=== PATIENT | female | born 1960 | race Two or more races ===

== ENCOUNTER 2024-10-08 12:31 | Inpatient (IN) | payer MEDICAID, OTHER ==
[~2024-10-08] VITALS: Ht 157.5 cm; Wt 48.0 kg
--- NOTE | 2024-10-08 12:44 | ED.PDOC ---
History of Present Illness HPI Comments 64Y F presents to ED via EMS for chief complaint body aches. Additional symptoms include headache, ear pain, teeth pain, neck pain, back pain, congestion, productive cough, and fever. Pt denies chest pain and SOB. Pt states she hurts everywhere. Pt has sick family at home. Chief Complaint: Body Pain Time Seen by MD: 12:37 Reviewed Notes: Medications, Allergies Allergies: Coded Allergies: Penicillins (Verified Allergy, Unknown, 10/08/24) Information Source: Patient, Emergency Med Personnel Mode of Arrival: EMS Severity: Mild Timing: Days Duration: Since onset Prehospital treatment: None Past Medical History PAST MEDICAL HISTORY: Denies Surgical History: Denies all surgeries DRUM LOADER AND UNLOADER History: No Pertinent DRUM LOADER AND UNLOADER History Family History Family History: Unknown Social History Smoker: Cigarettes, Less Than 1 Pack/Day Alcohol: Rarely Drugs: Denies Drug Use Lives In: Home Constitutional: reports: fever, others (body aches); denies: chills, diaphoresis, fatigue, malaise, sweats, weakness EENTM: reports: ear pain, mouth pain, nose congestion; denies: blurred vision, double vision, ear bleeding, ear discharge, ear drainage, ear ringing, eye pain, eye redness, hearing loss, mouth swelling, nasal discharge, nose bleeding, nose pain, photophobia, tearing, throat pain, throat swelling, voice changes, others Respiratory: reports: cough; denies: hemoptysis, orthopnea, SOB at rest, shortness of breath, SOB with excertion, stridor, wheezing, others Cardiovascular: denies: chest pain, dizzy spells, diaphoresis, Dyspnea on exertion, edema, irregular heart beat, left arm pain, lightheadedness, palpitations, PND, syncope, others Gastrointestinal: denies: abdomen distended, abdominal pain, blood streaked bowels, constipated, diarrhea, dysphagia, difficulty swallowing, hematemesis, melena, nausea, poor appetite, poor fluid intake, rectal bleeding, rectal pain, vomiting, others Genitourinary: denies: abnormal vagina bleeding, burning, dyspareunia, dysuria, flank pain, frequency, hematuria, incontinence, pain, , vagina discharge, urgency, others Neurological: reports: headache; denies: dizziness, fainting, left sided numbness, left sided weakness, numbness, paresthesia, pre-existing deficit, right sided numbness, right sided weakness, seizure, speech problems, tingling, tremors, weakness, others Musculoskeletal: reports: back pain, joint pain, neck pain; denies: gout, joint swelling, muscle pain, muscle stiffness, others Integumetry: denies: bruises, change in color, change in hair/nails, dryness, laceration, lesions, lumps, rash, wounds, others Allergic/Immunocompromised: denies: Difficulty Healing, Frequent Infections, Hives, Itching, others Hematologic/Lymphatic: denies: anemia, blood clots, easy bleeding, easy bruisi ng, swollen glands, others Endocrine: denies: excessive hunger, excessive sweating, excessive thirst, exce ssive urination, flushing, intolerance to cold, intolerance to heat, unexplained weight gain, unexplained weight loss, others Psychiatric: denies: anxiety, bipolar disorder, depression, hopeless, panic disorder, schizophrenia, sleepless, suicidal, others All Other Systems: Reviewed and Negative Physical Exam General Appearance: Other (tenderness on touch) HEENT: Normal ENT Inspection, Pharynx Normal, TMs Normal Neck: Full Range of Motion, Non-Tender, Normal, Normal Inspection Respiratory: Chest Non-Tender, Lungs Clear, No Accessory Muscle Use, No Respiratory Distress, Normal Breath Sounds Cardiovascular: No Edema, No JVD, No Murmur, No Gallop, Normal Peripheral Pulses, Regular Rate/Rhythm Breast Exam: Deferred Gastrointestinal: No Organomegaly, Non Tender, No Pulsatile Mass, Normal Bowel Sounds, Soft Genitalia: Deferred Pelvic: Deferred Rectal: Deferred Extremities: No calf tenderness, Normal capillary refill, Normal inspection, Normal range of motion, Non-tender, No pedal edema Musculoskeletal : Apperance: Normal Neurologic: Alert, manager filter II-XII nml as Tested, No Motor Deficits, Normal Affect, Normal Mood, No Sensory Deficits Cerebellar Function: Normal Reflexes: Normal Skin: Dry, Normal Color, Warm Lymphatic: No Adenopathy Was a procedure done? Was a procedure done?: No Differential Dx Considerations may include: URI, COVID, Influenza X-Ray, Labs, Meds, VS Vital Signs Date Time Temp Pulse Resp B/P (MAP) Pulse Ox O2 Delivery O2 Flow Rate FiO2 10/08/24 13:06 102.1 12/25/24 12:55 102.1 94 18 150/83 (105) 94 102.1 10/08/24 12:55 94 18 94 Room Air 10/08/24 12:37 100.8 99 18 132/75 (94) 96 Lab Test 10/08/24 13:36 Range/Units White Blood Count 14.4 H 4.4-10.8 10^3/uL Red Blood Count 4.24 4.0-5.20 10^6/uL Hemoglobin 12.5 12.2-16.2 g/dL Hematocrit 37.0 36.0-46.0 % Mean Corpuscular Volume 87.3 80.0-100.0 fL Mean Corpuscular Hemoglobin 29.4 28.0-32.0 pg Mean Corpuscular Hemoglobin Concent 33.7 32.0-36.0 g/dL Red Cell Distribution Width 14.3 11.8-14.3 % Platelet Count 349 140-450 10^3/uL Mean Platelet Volume 8.6 6.9-10.8 fL Neutrophils (%) (Auto) 81.3 H 37.0-80.0 % Lymphocytes (%) (Auto) 10.9 10.0-50.0 % Monocytes (%) (Auto) 7.2 0.0-12.0 % Eosinophils (%) (Auto) 0.2 0.0-7.0 % Basophils (%) (Auto) 0.4 0.0-2.0 % Neutrophils # (Auto) 11.7 H 1.6-8.6 10 ^3/uL Lymphocytes # (Auto) 1.6 0.4-5.4 10 ^3/uL Monocytes # (Auto) 1.0 0-1.3 10 ^3/uL Eosinophils # (Auto) 0 0-0.8 10 ^3/uL Basophils # (Auto) 0.1 0-0.2 10 ^3/uL Nucleated Red Blood Cells 0.0 % Sodium Level 135 L 136-145 mmol/L Potassium Level 3.3 L 3.5-5.1 mmol/L Chloride Level 104 98-107 mmol/L Carbon Dioxide Level 21 20-31 mmol/L Anion Gap 10 5-15 Blood Urea Nitrogen 16 9-23 mg/dL Creatinine 0.69 0.550-1.02 mg/dL Glomerular Filtration Rate Calc 98 >90 mL/min BUN/Creatinine Ratio 23.2 H 10.0-20.0 Serum Glucose 104 74-106 mg/dL Calcium Level 10.1 8.7-10.4 mg/dL Creatine Kinase 61 34-145 U/L Current Medications Medications (Trade) Dose Ordered Sig/Corrie Route Start Time Stop Time Status Last Admin Ketorolac Tromethamine (Toradol Injection) 30 mg ONCE ONCE IM 10/08/24 12:45 10/08/24 12:46 DC 10/08/24 13:06 Acetaminophen (Tylenol Tablet Or Capsule) 1,000 mg ONCE ONCE PO 10/08/24 13:00 10/08/24 13:01 DC 10/08/24 13:06 Time of 1ST Reevaluation: 13:07 Reevaluation 1ST: Unchanged Patient Education/Counseling: Diagnosis, Treatment Family Education/Counseling: No Family Present Critical Care Note Critical Care Time?: No Stability Stability form required: No Heart Score Heart Score: Heart Score Response (Comments) Value History N/A 0 EKG N/A 0 Age N/A 0 Risk Factors N/A 0 Troponin N/A 0 Total 0 I personally scribed for JAMES HOFFMAN MD ([email or web address]) on 10/08/24 at 12:44. Electronically submitted by Karina Beaver ([employer]). I personally scribed for JAMES HOFFMAN MD ([email or web address]) on 10/08/24 at 14:26. Electronically submitted by Karina Beaver ([employer]). JAMES HOFFMAN MD Oct 08, 2024 12:44
[2024-10-08] MEDS: ACETAMINOPHEN 500 MG TAB or CAP PO ONE (13:06)
[2024-10-08] MEDS: KETOROLAC TROMETH 30 MG/ML 1ML VIAL IM ONE (13:06)
--- NOTE | 2024-10-08 13:39 | DVH ---
CHEST RADIOGRAPH Indication: pain Technique: Single frontal view of the chest was obtained Comparison: None FINDINGS: Lines and Tubes: None Lungs: Bilateral lower lung zone opacification. Pleura: No effusion. No pneumothorax. Cardiomediastinal contours: Unremarkable Bones: No acute osseous abnormality. IMPRESSION: Bilateral lower lung zone pneumonia/atelectasis.
[2024-10-08 13:52] LABS: Basophils # (auto) 0.1 10 ^3/uL (0-0.2); Basophils % (auto) 0.4 % (0.0-2.0); Eosinophils # (auto) 0 10 ^3/uL (0-0.8); Eosinophils % (auto) 0.2 % (0.0-7.0); Hemoglobin 12.5 g/dL (12.2-16.2); Lymphocytes # (auto) 1.6 10 ^3/uL (0.4-5.4); Lymphocytes % (auto) 10.9 % (10.0-50.0); Mean Corpuscular Hemoglobin 29.4 pg (28.0-32.0); Mean Corpuscular Hgb Conc. 33.7 g/dL (32.0-36.0); Mean Corpuscular Volume 87.3 fL (80.0-100.0); Monocytes % (auto) 7.2 % (0.0-12.0); Neutrophils # (auto) 11.7 10 ^3/uL (1.6-8.6); Neutrophils % (auto) 81.3 % (37.0-80.0); Platelet Count (auto) 349 10^3/uL (140-450); Red Blood Cells 4.24 10^6/uL (4.0-5.20); Red Cell Distribution Width 14.3 % (11.8-14.3); White Blood Cell 14.4 10^3/uL (4.4-10.8)
[2024-10-08 13:57] LABS: Chloride 104 mmol/L (98-107)
[2024-10-08 13:58] LABS: Anion Gap 10 (5-15); Calcium 10.1 mg/dL (8.7-10.4); Carbon Dioxide 21 mmol/L (20-31)
[2024-10-08 14:03] LABS: BUN/Creatinine Ratio 23.2 (10.0-20.0); Blood Urea Nitrogen 16 mg/dL (9-23); Glucose 104 mg/dL (74-106)
[2024-10-08 14:05] LABS: Creatine Kinase IFCC 61 U/L (34-145)
[2024-10-08 14:09] LABS: Potassium 3.3 mmol/L (3.5-5.1); Sodium 135 mmol/L (136-145)
--- NOTE | 2024-10-08 14:29 | ED.PDOC ---
History of Present Illness HPI Comments 64Y F presents to ED via EMS for chief complaint body aches. Additional symptoms include headache, ear pain, teeth pain, neck pain, back pain, congestion, productive cough, and fever. Pt denies chest pain and SOB. Pt states she hurts everywhere. Pt has sick family at home. Chief Complaint: Body Pain Time Seen by MD: 12:37 Primary Care Provider: aviva Horne Notes: Medications, Allergies Allergies: Coded Allergies: Penicillins (Verified Allergy, Unknown, 10/08/24) Information Source: Patient, Emergency Med Personnel Mode of Arrival: EMS Severity: Mild Timing: Days Duration: Since onset Prehospital treatment: None Past Medical History PAST MEDICAL HISTORY: Denies Surgical History: Denies all surgeries FAIRGROUND OPERATOR History: No Pertinent FAIRGROUND OPERATOR History Family History Family History: Unknown Social History Smoker: Cigarettes, Less Than 1 Pack/Day Alcohol: Rarely Drugs: Denies Drug Use Lives In: Home Constitutional: reports: fever; denies: chills, diaphoresis, fatigue, malaise, sweats, weakness, others EENTM: reports: ear pain, mouth pain, nose congestion; denies: blurred vision, double vision, ear bleeding, ear discharge, ear drainage, ear ringing, eye pain, eye redness, hearing loss, mouth swelling, nasal discharge, nose bleeding, nose pain, photophobia, tearing, throat pain, throat swelling, voice changes, others Respiratory: reports: cough; denies: hemoptysis, orthopnea, SOB at rest, shortness of breath, SOB with excertion, stridor, wheezing, others Cardiovascular: denies: chest pain, dizzy spells, diaphoresis, Dyspnea on exertion, edema, irregular heart beat, left arm pain, lightheadedness, palpitations, PND, syncope, others Gastrointestinal: denies: abdomen distended, abdominal pain, blood streaked bowels, constipated, diarrhea, dysphagia, difficulty swallowing, hematemesis, melena, nausea, poor appetite, poor fluid intake, rectal bleeding, rectal pain, vomiting, others Genitourinary: denies: abnormal vagina bleeding, burning, dyspareunia, dysuria, flank pain, frequency, hematuria, incontinence, pain, , vagina discharge, urgency, others Neurological: reports: headache; denies: dizziness, fainting, left sided numbness, left sided weakness, numbness, paresthesia, pre-existing deficit, right sided numbness, right sided weakness, seizure, speech problems, tingling, tremors, weakness, others Musculoskeletal: reports: back pain, joint pain, muscle pain, neck pain; d enies: gout, joint swelling, muscle stiffness, others Integumetry: denies: bruises, change in color, change in hair/nails, dryness, laceration, lesions, lumps, rash, wounds, others Allergic/Immunocompromised: denies: Difficulty Healing, Frequent Infections, Hives, Itching, others Hematologic/Lymphatic: denies: anemia, blood clots, easy bleeding, easy bruising, swollen glands, others Endocrine: denies: excessive hunger, excessive sweating, excessive thirst, excessive urination, flushing, intolerance to cold, intolerance to heat, unexplained weight gain, unexplained weight loss, others Psychiatric: denies: anxiety, bipolar disorder, depression, hopeless, panic disorder, schizophrenia, sleepless, suicidal, others All Other Systems: Reviewed and Negative Physical Exam General Appearance: No Apparent Distress, Normal HEENT: Normal ENT Inspection, Pharynx Normal, TMs Normal Neck: Full Range of Motion, Non-Tender, Normal, Normal Inspection Respiratory: Chest Non-Tender, Lungs Clear, No Accessory Muscle Use, No Respiratory Distress, Normal Breath Sounds Cardiovascular: No Edema, No JVD, No Murmur, No Gallop, Normal Peripheral Pulses, Regular Rate/Rhythm Breast Exam: Deferred Gastrointestinal: No Organomegaly, Non Tender, No Pulsatile Mass, Normal Bowel Sounds, Soft Genitalia: Deferred Pelvic: Deferred Rectal: Deferred Extremities: No calf tenderness, Normal capillary refill, Normal inspection, Normal range of motion, Non-tender, No pedal edema Musculoskeletal : Apperance: Normal Neurologic: Alert, manager summer II-XII nml as Tested, No Motor Deficits, Normal Affect, Normal Mood, No Sensory Deficits Cerebellar Function: Normal Reflexes: Normal Skin: Dry, Normal Color, Warm Lymphatic: No Adenopathy Was a procedure done? Was a procedure done?: No Differential Dx Considerations may include: influenza, COVID, URI, rhabdomyolysis, pneumonia, chronic pain X-Ray, Labs, Meds, VS Vital Signs Date Time Temp Pulse Resp B/P (MAP) Pulse Ox O2 Delivery O2 Flow Rate FiO2 10/08/24 13:06 102.1 10/08/24 12:55 102.1 94 18 150/83 (105) 94 102.1 10/08/24 12:55 94 18 94 Room Air 10/08/24 12:37 100.8 99 18 132/75 (94) 96 Lab Test 10/08/24 13:36 10/08/24 12:56 Range/Units White Blood Count 14.4 H 4.4-10.8 10^3/uL Red Blood Count 4.24 4.0-5.20 10^6/uL Hemoglobin 12.5 12.2-16.2 g/dL Hematocrit 37.0 36.0-46.0 % Mean Corpuscular Volume 87.3 80.0-100.0 fL Mean Corpuscular Hemoglobin 29.4 28.0-32.0 pg Mean Corpuscular Hemoglobin Concent 33.7 32.0-36.0 g/dL Red Cell Distribution Width 14.3 11.8-14.3 % Platelet Count 349 140-450 10^3/uL Mean Platelet Volume 8.6 6.9-10.8 fL Neutrophils (%) (Auto) 81.3 H 37.0-80.0 % Lymphocytes (%) (Auto) 10.9 10.0-50.0 % Monocytes (%) (Auto) 7.2 0.0-12.0 % Eosinophils (%) (Auto) 0.2 0.0-7.0 % Basophils (%) (Auto) 0.4 0.0-2.0 % Neutrophils # (Auto) 11.7 H 1.6-8.6 10 ^3/uL Lymphocytes # (Auto) 1.6 0.4-5.4 10 ^3/uL Monocytes # (Auto) 1.0 0-1.3 10 ^3/uL Eosinophils # (Auto) 0 0-0.8 10 ^3/uL Basophils # (Auto) 0.1 0-0.2 10 ^3/uL Nucleated Red Blood Cells 0.0 % Sodium Level 135 L 136-145 mmol/L Potassium Level 3.3 L 3.5-5.1 mmol/L Chloride Level 104 98-107 mmol/L Carbon Dioxide Level 21 20-31 mmol/L Anion Gap 10 5-15 Blood Urea Nitrogen 16 9-23 mg/dL Creatinine 0.69 0.550-1.02 mg/dL Glomerular Filtration Rate Calc 98 >90 mL/min BUN/Creatinine Ratio 23.2 H 10.0-20.0 Serum Glucose 104 74-106 mg/dL Calcium Level 10.1 8.7-10.4 mg/dL Creatine Kinase 61 34-145 U/L Influenza Type A Antigen Pending Influenza Type B Antigen Pending SARS-CoV-2 Antigen (Rapid) Pending Current Medications Medications (Trade) Dose Ordered Sig/Corrie Route Start Time Stop Time Status Last Admin Ketorolac Tromethamine (Toradol Injection) 30 mg ONCE ONCE IM 10/08/24 12:45 10/08/24 12:46 DC 10/08/24 13:06 Acetaminophen (Tylenol Tablet Or Capsule) 1,000 mg ONCE ONCE PO 10/08/24 13:00 10/08/24 13:01 DC 10/08/24 13:06 [place] [id number] Ph: [phone] DIAGNOSTIC IMAGING Diagnostic Imaging Report : [id number] Signed PATIENT: PILAR NELSON ACCT: [id number] UNIT: [id number] : 1960 LOC: ER ROOM / BED: / AGE / SEX: 64 / F ADM STATUS: REG ER SERVICE 1241 ORDERING PHYSICIAN: WALT DIMAS MD PROCEDURE(s): CXRP - CHEST PORTABLE REASON: pain ORDER NUMBER(s): [id number], ACCESSION NUMBER(s): [id number] CHEST RADIOGRAPH Indication: pain Technique: Single frontal view of the chest was obtained Comparison: None FINDINGS: Lines and Tubes: None Lungs: Bilateral lower lung zone opacification. Pleura: No effusion. No pneumothorax. Cardiomediastinal contours: Unremarkable Bones: No acute osseous abnormality. IMPRESSION: Bilateral lower lung zone pneumonia/atelectasis. ATED BY: SIMRAN MCFADDEN DO DICTATED DATE/TIME: 10/08/241335 SIGNED BY: SIMRAN MCFADDEN DO SIGNED DATE/TIME: 10/08/24 133 CC: Time of 1ST Reevaluation: 13:07 Reevaluation 1ST: Unchanged Time of 2ND Reevaluation: 14:50 Reevaluation 2ND: Unchanged Time of 3RD Reevaluation: 15:15 Reevaluation 3RD: Unchanged Patient Education/Counseling: Diagnosis, Treatment, Prognosis, Need For Follow Up Family Education/Counseling: No Family Present Additional Information pt h as evidence of pneumonia, which may have contributed to her overall pain. she does not have rhabdomyolysis. she has a fever and leukocytosis and a source of infection, so i will start the sepsis order set and admit her for further treatments Sepsis Sepsis Reasesment Focused Exam Sepsis focused exam: focus exam completed, time: (pt remains stable is feeling [id number]) Departure 1 Departure Time of Disposition: 13:07 Impression: Primary Impression: Pneumonia Qualified Codes: J18.9 - Pneumonia, unspecified organism Additional Impressions: Myalgia Sepsis Qualified Codes: A41.9 - Sepsis, unspecified organism Disposition: ADMITTED INPATIENT Admit to: Med Surg Condition: Serious Critical Care Note Critical Care Time?: Yes (55 min-critical care time only) Critical care comment: due to concerns for patient's condition deteriorating, the care required my highest level of attention and readiness to intervene. i reviewed any external notes, communicatd with medical personnel, assessed the pt, ordered the proper tests and treatments, and reassessed for response, formulated a plan of care. the critical care time excludes any procedures Stability Stability form required: No Heart Score Heart Score: Heart Score Response (Comments) Value History N/A 0 EKG N/A 0 Age N/A 0 Risk Factors N/A 0 Troponin N/A 0 Total 0 I personally scribed for WALT DIMAS MD ([email or web address]) on 10/08/24 at 14:29. Electronically submitted by Karina Beaver ([employer]). I personally scribed for WALT DIMAS MD ([email or web address]) on 10/08/24 at 14:30. Electronically submitted by Karina Beaver ([employer]). WALT DIMAS MD Oct 08, 2024 14:29
[2024-10-08 15:29] LABS: COVID19 ANTIGEN SOFIA FIA NEGATIVE (NEGATIVE)
[2024-10-08 15:30] LABS: Rapid Influenza A Negative (Negative); Rapid Influenza B Negative (Negative)
[2024-10-08] MEDS: SODIUM CHLORIDE 0.9% 1,500 ML IV ONE (15:36)
[2024-10-08] MEDS: levoFLOXacin 750MG 150 ML IV SCH (15:59)
[2024-10-08 16:08] VITALS: RESP 18; O2SAT 94
[2024-10-08 18:31] VITALS: PULSE 79; RESP 17; O2SAT 95
[2024-10-08 19:21] VITALS: PULSE 74; RESP 27; O2SAT 90
--- NOTE | 2024-10-08 21:14 | DVHHPRES ---
History of Present Illness Resident Creating Document: MARISOL MATHEW RESIDENT History of Present Illness This is a 64-year-old female with no significant past medical history presented to the ED with a chief complaint of malaise, generalized severe body ache, cold ,cough and low-grade fever for last 4 days prior to this admission. The patient states that she started having body ache, malaise and cough and cold toward last 4 days and also mentioned positive sick contact and 1 episodes of high fever but she did not measure the temperature. The patient denies chest pain, dizzin ess, diaphoresis, abdominal pain, nausea, vomiting, dysuria, hematuria or any change in bowel habit. Past Medical History None Past Surgical History Partial hysterectomy, thyroglossal cyst surgery Family History None Past Social History Lives with boyfriend Occasional smoker, occasional drinker and marijuana abuse disorder Review of Systems Constitutional: Yes: Fever, Chills, Weakness, Malaise; No: Sweats, Other Eyes: No: Pain, Vision change, Conjunctivae inflammation, Eyelid inflammation, Other, Redness ENT: No: Ear pain, Ear discharge, Nose pain, Nose discharge, Nose congestion, Mouth pain, Mouth swelling, Throat pain, Throat swelling, Other Respiratory: Cough, Shortness of breath, Sputum; No: Dry, SOB with excertion, Wheezing, Hemoptysis, Pleuritic Pain, Wheezing, Other Cardiovascular: No: Chest Pain, Palpitations, Orthopnea, Paroxysmal Noc. Dyspnea, Edema, Lt Headedness, Other Gastrointestinal: No: Nausea, Vomiting, Abdominal Pain, Diarrhea, Constipation, Melena, Hematochezia, Other Genitourinary: No Dysuria, No Frequency, No Incontinence, No Hematuria, No Retention, No Other Musculoskeletal: neck pain, shoulder pain, arm pain, back pain, hand pain, leg pain, foot pain; No: other Skin: No: Rash, Lesions, Jaundice, Bruising, Other Neurological: No: Weakness, Numbness, Incoordination, Change in speech, Confusion, Seizures, Other Allergies: Coded Allergies: Penicillins (Verified Allergy, Unknown, 10/08/24) Medications Current Medications Medications Dose Ordered Sig/Corrie Route Start Time Stop Time Status Last Admin Dose Admin Levofloxacin/ Dextrose 150 ml @ 50 mls/hr DAILY IV 10/08/24 21:15 UNV Albuterol 2.5 mg Q6HPRN NEB 10/09/24 00:00 UNV Ipratropium [employer] 0.5 mg Q6HPRN [facility] 10/09/24 00:00 UNV Exam Vital Signs Vital Signs Date Time Temp Pulse Resp B/P (MAP) Pulse Ox O2 Delivery O2 Flow Rate FiO2 10/08/24 19:21 74 27 90 Room Air* 0 21 10/08/24 19:20 98.6 117/69 (85) 98.6 Exam Physical examination: General Appearance: Alert, Oriented X3, Cooperative, mild distress and with 3 L nasal cannula o2 HEENT: Atraumatic, PERRLA, EOMI, Mucous membrane moist/pink Respiratory: Bilateral crackles . Cardiovascular: Regular rate, Normal S1, Normal S2, No murmurs, no chest wall tenderness Abdominal: Normal bowel sounds, Soft, No tenderness, No hepatospenomegaly, No masses Extremities: No clubbing, No cyanosis, No edema, Normal pulses, No tendernes s/swelling Skin: No rashes, No breakdown, No significant lesion Neuro: Normal gait, Normal speech, Strength at 5/5 X4 ext, Normal tone, Sensation intact, grossly intact cranial nerves Psych/Mental Status: Mental status NL, Mood NL Labs/Xrays Labs Test 10/08/24 20:40 10/08/24 15:20 10/08/24 13:36 10/08/24 12:56 Range/Units Lactic Acid Level 1.0 0.4-2.0 mmol/L White Blood Count 14.4 H 4.4-10.8 10^3/uL Red Blood Count 4.24 4.0-5.20 10^6/uL Hemoglobin 12.5 12.2-16.2 g/dL Hematocrit 37.0 36.0-46.0 % Mean Corpuscular Volume 87.3 80.0-100.0 fL Mean Corpuscular Hemoglobin 29.4 28.0-32.0 pg Mean Corpuscular Hemoglobin Concent 33.7 32.0-36.0 g/dL Red Cell Distribution Width 14.3 11.8-14.3 % Platelet Count 349 140-450 10^3/uL Mean Platelet Volume 8.6 6.9-10.8 fL Neutrophils (%) (Auto) 81.3 H 37.0-80.0 % Lymphocytes (%) (Auto) 10.9 10.0-50.0 % Monocytes (%) (Auto) 7.2 0.0-12.0 % Eosinophils (%) (Auto) 0.2 0.0-7.0 % Basophils (%) (Auto) 0.4 0.0-2.0 % Neutrophils # (Auto) 11.7 H 1.6-8.6 10 ^3/uL Lymphocytes # (Auto) 1.6 0.4-5.4 10 ^3/uL Monocytes # (Auto) 1.0 0-1.3 10 ^3/uL Eosinophils # (Auto) 0 0-0.8 10 ^3/uL Basophils # (Auto) 0.1 0-0.2 10 ^3/uL Nucleated Red Blood Cells 0.0 % Sodium Level 135 L 136-145 mmol/L Potassium Level 3.3 L 3.5-5.1 mmol/L Chloride Level 104 98-107 mmol/L Carbon Dioxide Level 21 20-31 mmol/L Anion Gap 10 5-15 Blood Urea Nitrogen 16 9-23 mg/dL Creatinine 0.69 0.550-1.02 mg/dL Glomerular Filtration Rate Calc 98 >90 mL/min BUN/Creatinine Ratio 23.2 H 10.0-20.0 Serum Glucose 104 74-106 mg/dL Calcium Level 10.1 8.7-10.4 mg/dL Creatine Kinase 61 34-145 U/L Influenza Type A Antigen Negative Negative Influenza Type B Antigen Negative Negative SARS-CoV-2 Antigen (Rapid) Negative NEGATIVE Assessment/Plan Assessment/Plan Assessment and plan: # Acute respiratory failure likely due to community-acquired Gram-positive/ Gram-negative pneumonia - Patient is on 3 L oxygen with saturation 97% # Community acquired Gram-positive/Gram-negative pneumonia - Covid and flu negative - x-ray chest revealed bilateral lower lung zone pneumonia/atelectasis - Ordered UA, blood C/S and sputum culture - IV levofloxacin 750 mg daily - Duoneb with ipratropium and albuterol Q 8 hours # Hypokalemia - Replenished # Possible subclinical hyperthyroidism - Ordered FT3 And T4 # DVT prophylaxis - Protonix 40 mg p.o. daily # DVT prophylaxis - Lovenox 40 mg sc daily Goal Of care discussed with the patient for more than 20 minutes full code Plan discussed with Dr. Webb Plan discussed with: Patient, Other My Orders Orders - MARISOL MATHEW RESIDENT Procedure Category Date Status Time Levofloxacin 750mg PHA 10/08/24 Logged (Levaquin) 21:15 Admit ADMIT 10/08/24 Transmitted 21:08 Urinalysis LAB 10/08/24 Logged 21:08 Drug Screen LAB 10/08/24 Logged 21:08 Respiratory Culture [place] 10/08/24 Logged W/ Gs 21:08 Blood Culture [place] 10/08/24 Logged 21:08 Thyroid Stimulating LAB 10/08/24 Transmitted Hormone 21:11 Albuterol Medneb PHA 10/09/24 Logged (Ventolin Medneb) 00:00 Ipratropium Medneb PHA 10/09/24 Logged (Atrovent Medneb) 00:00 Date of Service: Oct 08, 2024 Billing Provider: LALITA WEBB MD Common Visit Codes: [id number] INP/OBS CARE (HIGH) MARISOL MATHEW RESIDENT Oct 08, 2024 21:14 LALITA WEBB MD Oct 09, 2024 11:48
[2024-10-08 21:16] VITALS: BP 117/69; PULSE 74; RESP 26; TEMP 98.6; O2SAT 92
[2024-10-08] MEDS: POTASSIUM EFFERVESENT TAB 25 MEQ PO ONE (21:40)
[2024-10-08 23:06] LABS: Free T3 3.05 pg/mL (2.3-4.2)
[2024-10-08 23:07] LABS: Free T4 (Free Thyroxine) 1.25 ng/dL (0.89-1.76)
[2024-10-09] VITALS (12 sets, daily range): BP systolic 90–111; BP diastolic 55–72; PULSE 64–80; RESP 16–20; TEMP 97.5–98.6; O2SAT 92–100
[2024-10-09] MEDS: SODIUM CHLORIDE 0.9% 1,000 ML IV SCH (04:30)
[2024-10-09] MEDS: PANTOPRAZOLE 40 MG TAB PO SCH (06:26)
[2024-10-09 07:10] LABS: Basophils # (auto) 0 10 ^3/uL (0-0.2); Basophils % (auto) 0.2 % (0.0-2.0); Eosinophils # (auto) 0.1 10 ^3/uL (0-0.8); Eosinophils % (auto) 0.8 % (0.0-7.0); Hematocrit 32.6 % (36.0-46.0); Hemoglobin 11.1 g/dL (12.2-16.2); Lymphocytes # (auto) 1.9 10 ^3/uL (0.4-5.4); Lymphocytes % (auto) 14.6 % (10.0-50.0); Mean Corpuscular Hemoglobin 29.7 pg (28.0-32.0); Mean Corpuscular Hgb Conc. 33.9 g/dL (32.0-36.0); Mean Corpuscular Volume 87.6 fL (80.0-100.0); Monocytes # (auto) 0.6 10 ^3/uL (0-1.3); Monocytes % (auto) 4.9 % (0.0-12.0); Neutrophils # (auto) 10.3 10 ^3/uL (1.6-8.6); Neutrophils % (auto) 79.5 % (37.0-80.0); Platelet Count (auto) 307 10^3/uL (140-450); Red Blood Cells 3.73 10^6/uL (4.0-5.20)
[2024-10-09] MEDS: IPRATROPIUM BROM 0.5 MG/2.5ML INH SOL NEB SCH (07:23)
[2024-10-09] MEDS: ALBUTEROL SULF 2.5 MG/0.5ML(0.5%) NEB SOLN NEB SCH (07:23)
[2024-10-09 07:38] LABS: Anion Gap 8 (5-15); Calcium 9.4 mg/dL (8.7-10.4); Carbon Dioxide 23 mmol/L (20-31); Sodium 139 mmol/L (136-145)
[2024-10-09 07:43] LABS: Glucose 77 mg/dL (74-106)
[2024-10-09 07:44] LABS: BUN/Creatinine Ratio 24.6 (10.0-20.0); Blood Urea Nitrogen 14 mg/dL (9-23); Chloride 108 mmol/L (98-107); Potassium 3.4 mmol/L (3.5-5.1)
[2024-10-09] MEDS: POTASSIUM EFFERVESENT TAB 25 MEQ PO ONE (08:30)
[2024-10-09] MEDS: ENOXAPARIN SOD 40 MG/0.4 ML SYRINGE SC SCH (10:00)
[2024-10-09] MEDS: AZITHROMYCIN 500MG/ 250ML 250 ML IV SCH (10:00)
[2024-10-09] MEDS: ACETAMINOPHEN 325 MG TAB PO PRN (12:09)
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
[2024-10-09] MEDS ORDERED: levoFLOXacin 750MG 150 ML IV SCH (16:00)
--- NOTE | 2024-10-09 17:37 | DVH ---
Procedure: CT CHEST WITHOUT CONTRAST Reason for study/Clinical History: pneumonia Comparison Study: Chest X-ray on 10/08/2025 Exam Date: 10/09/2024 04:40 PM TECHNIQUE: Multidetector CT of the chest was performed from the lung apices to the upper abdomen with out the use of intravenous contract. Axial, coronal and sagittal multiplanar reformats were performed . Radiation dose Information: CT Dose: CTDI volume is 4.56 mGy. Dose-length product is 136.51 mGy*cm The dose indicators for CT are the volume computed tomography (CT) dose index (CTDIvol) and the dose length product (DLP), and are measured in units of mGy and mGy-cm, respectively. These indicators are not patient dose, but values generated from the CT scanner acquisition factors. The report includes radiation exposure data for exposures received during this examination. FINDINGS: Moderate left pleural effusion. Moderately severe pneumonic infiltrate of the left lower lobe with mu ltiple air bronchograms. Patchy infiltrate right lung base posteriorly. Moderate dextroscoliosis of t he thoracic spine. Heart size upper limits normal. No vertebral body fracture. No lytic or blastic ch anges. No ascending aortic aneurysm. No hilar adenopathy. 1. Impression: 2. Large left lower lobe consolidation, increased in size when compared to the prior chest X-ray 3. Moderately mild left pleural effusion 4. Mild patchy infiltrate medial right lung base 5. Normal heart size 6. No obvious mediastinal or hilar adenopathy Radiation optimization: All CT scans at this facility use at least one of these dose optimization kamini hniques: Automated exposure control mA and/or kV adjustment per patient size (includes targeted exams where dose is matched to clinical indication) or iterative reconstruction.
[2024-10-10] VITALS (10 sets, daily range): BP systolic 102–131; BP diastolic 62–76; PULSE 63–82; RESP 16–20; TEMP 97.3–98.4; O2SAT 92–100
[2024-10-10] MEDS: ACETAMINOPHEN 500 MG TAB or CAP PO PRN (01:04)
[2024-10-10 03:37] LABS: Opiate Scree,Urine Neg (NEGATIVE)
[2024-10-10 03:38] LABS: Amphetamine Screen, Urine Pos (NEGATIVE); Barbiturate Scree,Urine Neg (NEGATIVE); Benzodiazephine Screen, Urine Neg (NEGATIVE); Cannabinoid Screen, Urine Neg (NEGATIVE); Cocaine Screen, Urine Neg (NEGATIVE); Phencyclidine Screen, Urine Neg (NEGATIVE)
[2024-10-10 05:18] LABS: Urine Bacteria FEW /hpf (None Seen); Urine Blood Negative /uL (Negative); Urine Clarity Clear (Clear); Urine Color Light-Yellow (Yellow); Urine Mucus FEW (None Seen); Urine Protein, UAD Negative (Negative); Urine Specific Gravity 1.024 (1.001-1.035); Urine Squamous Epithelial Cell FEW /hpf (<5); Urine Urobilinogen Normal (Negative); Urine WBC 5 /hpf (0 - 5)
[2024-10-10 07:47] LABS: Basophils # (auto) 0 10 ^3/uL (0-0.2); Basophils % (auto) 0.3 % (0.0-2.0); Eosinophils # (auto) 0.1 10 ^3/uL (0-0.8); Eosinophils % (auto) 1.3 % (0.0-7.0); Hematocrit 33.7 % (36.0-46.0); Hemoglobin 11.6 g/dL (12.2-16.2); Lymphocytes % (auto) 20.3 % (10.0-50.0); Mean Corpuscular Hemoglobin 30.2 pg (28.0-32.0); Mean Corpuscular Hgb Conc. 34.4 g/dL (32.0-36.0); Mean Corpuscular Volume 87.7 fL (80.0-100.0); Monocytes # (auto) 0.5 10 ^3/uL (0-1.3); Monocytes % (auto) 5.5 % (0.0-12.0); Neutrophils # (auto) 7.2 10 ^3/uL (1.6-8.6); Neutrophils % (auto) 72.6 % (37.0-80.0); Platelet Count (auto) 394 10^3/uL (140-450); Red Blood Cells 3.85 10^6/uL (4.0-5.20); Red Cell Distribution Width 14.3 % (11.8-14.3); White Blood Cell 9.9 10^3/uL (4.4-10.8)
[2024-10-10 08:06] LABS: Potassium 3.5 mmol/L (3.5-5.1); Sodium 142 mmol/L (136-145)
[2024-10-10 08:07] LABS: Anion Gap 7 (5-15); Carbon Dioxide 23 mmol/L (20-31)
[2024-10-10 08:08] LABS: Calcium 9.3 mg/dL (8.7-10.4)
[2024-10-10 08:11] LABS: Chloride 112 mmol/L (98-107)
[2024-10-10 08:12] LABS: BUN/Creatinine Ratio 26.4 (10.0-20.0); Blood Urea Nitrogen 14 mg/dL (9-23); Glucose 84 mg/dL (74-106)
[2024-10-10] MEDS: cefTRIAXone 1GM/50ML D5W 50 ML IV SCH (09:00)
[2024-10-10] MEDS ORDERED: LEVO750T40 PO (11:40)
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
[2024-10-13 12:06] LABS: Vitamin D 25-Hydroxy 33 ng/mL (.); Vitamin D-2 25-Hydroxy <1.0 ng/mL (.); Vitamin D-3 25-Hydroxy 33 ng/mL (.)
== END 2024-10-10 16:00 | disposition home or self-care (01) | DRG 720 ==
LOC: EDBD 12:31 → ER 12:31 → OVERFLOW 21:08 → WEST WING 22:43
PROVIDERS: ADMIT Internal Medicine; ATTEND Internal Medicine
DX: A41.50 Gram-negative sepsis, unspecified (principal); J96.00 Acute respiratory failure, unspecified whether with hypoxia or hypercapnia; J15.69 Pneumonia due to other Gram-negative bacteria; J15.9 Unspecified bacterial pneumonia; J98.11 Atelectasis; E87.6 Hypokalemia; F17.210 Nicotine dependence, cigarettes, uncomplicated; Z20.822 Contact with and (suspected) exposure to COVID-19; Z88.0 Allergy status to penicillin; Z88.1 Allergy status to other antibiotic agents; Z68.1 Body mass index [BMI] 19.9 or less, adult
CPT/HCPCS: 36415; 71045; 71250; 80048; 80307; 81001; 82306; 82550; 82607; 83036; 83605; 83880; 84439; 84443; 84481; 84484; 85025; 87040; 87426; 87804; 94640; 96365; 96372; 99291; G0378; J1885; J1956